=== PATIENT | female | born 1990 | race African-American/Black ===

== ENCOUNTER → 2018-11-10 | Day surgery (SDC) | payer OTHER ==
[~2018-11-10] VITALS: Ht 162.6 cm; Wt 134.7 kg
[~2018-11-10] MED LIST: FLONASE 0.05%50 MCG NASAL; IBUPROFEN 600600 M1 PO; SERTRALINE HCL100 MG PO; TRI FEMYNOR 281 EACH PO; ZANTAC 150MG T150 MG PO
--- NOTE | ~2018-11-10 | O ---
[facility] [place] [address] OPERATIVE REPORT Name: JASS JIMENEZ Room #: 150-5 [facility]..#: [id number] Admission: 11/10/18 ������������������ Attend Phys: Boby Grissom MD Discharge: ������������������ Date of : 89 Report #: [id number] THIS REPORT FOR: //name// CC: FAM unknown Boby Grissom DATE OF SERVICE: 11/10/2018 PREOPERATIVE DIAGNOSES: Chronic tonsillitis with tonsil and adenoid hypertrophy. POSTOPERATIVE DIAGNOSES: Chronic tonsillitis with tonsil and adenoid hypertrophy. OPERATIVE PROCEDURE: Tonsillectomy and adenoidectomy. ANESTHESIA: General endotracheal. DESCRIPTION OF PROCEDURE: The patient was taken to the operating room and placed in the supine position. General anesthesia was induced by endotracheal intubation. Once adequate general anesthesia was obtained, the patient was draped in a sterile manner. A Anthony-Ulises mouth gag was placed in the patient's mouth and the tongue was deviated upward. A throat pack was placed. Red rubber catheters were placed through the nose and nasopharynx and out the oropharynx and oral cavity to elevate the soft palate and the nasopharynx was visualized indirectly using a mirror. The adenoid was hypertrophied and adenoidectomy was performed by placing the adenoid curette at the base of the vomer and sweeping downward. The adenoid was removed and sent to pathology. Nasopharyngeal packing was placed. The right tonsil was grasped and deviated towards the midline. An incision was placed in the anterior tonsillar pillar using the Bovie electrocautery and a plane was developed between the tonsillar capsule and tonsillar fossa. Dissection was carried out in this plane using the Bovie and hemostasis was achieved during the dissection. Dissection was carried out from superior to inferior. The inferior pole was incised. The posterior tonsillar mucosa was incised. The tonsil was removed and sent to pathology. Left tonsil was removed in exactly the same manner. The area was then irrigated with normal saline. Hemostasis was verified in the tonsillar beds. The nasopharyngeal packing was removed. The nasopharynx was irrigated and there was adequate hemostasis in the nasopharynx as well. The throat pack, mouth gag and red rubber catheters were all removed. The patient tolerated the procedure well. Blood loss was approximately 20 mL. The patient was then awoken and taken to the recovery room in stable condition for postoperative monitoring. ��������������������������������������������� ���������������������������������������� By: ��������������������������������������������� [id number] Boby Grissom MD /nt
[2018-11-10 09:45] VITALS: BP 146/78
[2018-11-10 13:35] VITALS: BP 146/78
== END | disposition home or self-care (01) ==
LOC: EDBD → OR 05:43 → TBA 05:43 → OR 07:29
DX: J35.01 Chronic tonsillitis (principal); J35.3 Hypertrophy of tonsils with hypertrophy of adenoids; K21.9 Gastro-esophageal reflux disease without esophagitis; Z98.890 Other specified postprocedural states; Z79.899 Other long term (current) drug therapy
CPT/HCPCS: 50010; 50101